=== PATIENT | female | born 1960 | race Caucasian/White ===

== ENCOUNTER → 2017-03-12 | Outpatient (CLI) | payer BC, OTHER ==
[~2017-03-12] MED LIST: METFORMIN1000 MG PO; PAROXETINE20 MG PO; SYNTHROID0.15 MG PO; TOPAMAX25 M1 PO
== END ==
LOC: MHCPAIN 10:39
DX: G89.29 Other chronic pain (principal); M47.27 Other spondylosis with radiculopathy, lumbosacral region; M25.512 Pain in left shoulder
CPT/HCPCS: G0463

== ENCOUNTER → 2020-06-28 | Outpatient (CLI) | payer OTHER | LOC: COL.RAD 08:50 | DX: M25.512 Pain in left shoulder (principal) | CPT/HCPCS: J3301; Q9967 ==